=== PATIENT | male | born 1960 | race Asian ===

== ENCOUNTER 2017-06-26 12:00 | Emergency (ER) | payer OTHER ==
[~2017-06-26] VITALS: Ht 167.6 cm; Wt 56.7 kg
== END 2017-06-26 13:00 | disposition home or self-care (01) ==
LOC: ED 12:00
DX: S43.492A Other sprain of left shoulder joint, initial encounter (principal); X50.9XXA Other and unspecified overexertion or strenuous movements or postures, initial encounter; Y92.098 Other place in other non-institutional residence as the place of occurrence of the external cause
CPT/HCPCS: 96372; 99283; J1885

== ENCOUNTER 2021-05-27 15:33 | Emergency (ER) | payer OTHER ==
[~2021-05-27] VITALS: Ht 167.6 cm; Wt 59.0 kg
[2021-05-27 16:15] VITALS: BP 128/67; TEMP 98.1
== END 2021-05-27 16:15 | disposition home or self-care (01) ==
LOC: ED 15:33
DX: M25.511 Pain in right shoulder (principal); R52 Pain, unspecified; L98.8 Other specified disorders of the skin and subcutaneous tissue
CPT/HCPCS: 99281

== ENCOUNTER 2021-08-23 04:41 | Emergency (ER) | payer OTHER ==
[~2021-08-23] VITALS: Ht 167.6 cm; Wt 59.0 kg
[2021-08-23 05:38] VITALS: BP 137/66; TEMP 98.3
== END 2021-08-23 05:39 | disposition home or self-care (01) ==
LOC: ED 04:41
PROC: 08C0XZZ Extirpation of Matter from Right Eye, External Approach (ICD-10-PCS; principal; 2021-08-23)
DX: H10.89 Other conjunctivitis (principal); T15.81XA Foreign body in other and multiple parts of external eye, right eye, initial encounter; X58.XXXA Exposure to other specified factors, initial encounter; Y92.89 Other specified places as the place of occurrence of the external cause
CPT/HCPCS: 99283